=== PATIENT | female | born 1990 | race Caucasian/White ===

== ENCOUNTER 2020-04-17 03:40 | Emergency (ER) | payer MEDICAID ==
[~2020-04-17] VITALS: Ht 160 cm; Wt 57.7 kg
[2020-04-17 04:05] LABS: URINE HCG NEGATIVE (NEG)
[2020-04-17 04:20] LABS: CLARITY,URINE CLOUDY (Clear); COLOR,URINE ORANGE (Yellow); GLUCOSE, URINE NEGATIVE (Neg); KETONES,URINE NEGATIVE (Neg); LEUKOCYTE ESTERASE ,URINE SMALL (Neg); NITRITES, URINE NEGATIVE (Neg); OCCULT BLOOD,URINE LARGE (Neg); PH,URINE 6.5 (4.8-8.0); PROTEIN,URINE TRACE mg/dl (Neg); UROBILINOGEN,URINE 0.2 E.U/dL (0.2-1.0)
[2020-04-17] MEDS ORDERED: morphine 4 MG/ML inj SYRINge IV ONE (04:20)
[2020-04-17] MEDS ORDERED: ondansetron/PF 4mg/2ml inj IV ONE (04:20)
[2020-04-17] MEDS ORDERED: normal saline 1000ml 1,000 ML IV ONE (04:20)
[2020-04-17 04:21] LABS: UA COLLECTION TYPE CLN CATCH MIDSTREAM
[2020-04-17 04:23] LABS: BACTERIA,URINE 1+ /HPF (Neg); RBC,URINE 50-100 /HPF (0-2); SQUAMOUS EPITHELIAL CELL,UR FEW /LPF (FEW); WBC,URINE 0-4 /HPF (0-4)
[2020-04-17] MEDS ORDERED: normal saline 1000ML IV soln IVB ONE (04:25)
[2020-04-17 04:39] LABS: BASOPHILS # (AUTO) 0.1 X10'3 (0-0.2); BASOPHILS % (AUTO) 0.5 % (0-1); EOSINOPHILS # (AUTO) 0.1 X10'3 (0-0.9); EOSINOPHILS % (AUTO) 0.5 % (0-6); HEMOGLOBIN 12.7 g/dl (12.0-16.0); LYMPHOCYTES # (AUTO) 3.1 X10'3 (1.1-4.8); LYMPHOCYTES % (AUTO) 24.4 % (21-51); MEAN CORPUSCULAR HEMOGLOBIN 29.3 PG (27.0-31.0); MEAN CORPUSCULAR HGB CONC 33.4 g/dL (33.0-36.5); MEAN CORPUSCULAR VOLUME 87.9 FL (78-98); MEAN PLATELET VOLUME 7.5 FL (7.4-10.4); MONOCYTES # (AUTO) 0.7 X10'3 (0-0.9); MONOCYTES % (AUTO) 5.4 % (2-12); NEUTROPHILS # (AUTO) 8.7 X10'3 (1.8-7.7); NEUTROPHILS % (AUTO) 69.2 % (42-75); PLATELET COUNT 354 X10'3 (140-440); RED BLOOD COUNT 4.32 X10'6 (4.20-5.60); RED CELL DISTRIBUTION WIDTH 14.6 % (11.5-14.5); WHITE BLOOD COUNT 12.6 X10'3 (4.5-11.0)
[2020-04-17 04:46] LABS: ALANINE AMINOTRANSFERASE 20 U/L (12-78); ALBUMIN 3.6 G/DL (3.4-5.0); ALKALINE PHOSPHATASE 91 IU/L (46-116); ANION GAP 6 (8-16); ASPARTATE AMINO TRANSFERASE 11 U/L (10-37); BILIRUBIN,TOTAL 0.4 MG/DL (0.1-1.0); BLOOD UREA NITROGEN 27 MG/DL (7-18); BUN/CREATININE RATIO 23.5 (6.6-38.0); CALCIUM 9.6 MG/DL (8.5-10.1); CHLORIDE 110 MMOL/L (99-107); CREATININE 1.15 MG/DL (0.40-0.90); GLUCOSE 99 MG/DL (70-104); POTASSIUM 3.9 MMOL/L (3.5-5.1); SODIUM 144 MMOL/L (135-145); TOTAL CARBON DIOXIDE 28.3 MMOL/L (24-32); TOTAL PROTEIN 7.3 G/DL (6.4-8.2); eGFR 56 ML/MIN
[2020-04-17] MEDS ORDERED: ondansetron/PF 4mg/2ml inj IM ONE (05:05)
[2020-04-17] MEDS: morphine 2 MG/ML inj. syringe IV PRN ×3 (05:07→06:15)
[2020-04-17] MEDS ORDERED: POTA10TA21 PO (05:25)
[2020-04-17] MEDS ORDERED: morphine 2 MG/ML inj. syringe IV ONE (05:50)
[2020-04-17] MEDS ORDERED: tamsulosin 0.4mg capsule PO ONE (06:05)
[2020-04-17] MEDS ORDERED: tamsulosin 0.4mg capsule PO SCH (06:05)
[2020-04-17] MEDS ORDERED: FLO0.4C PO (06:06)
[2020-04-17] MEDS ORDERED: ONDA4TAB6 PO (06:06)
[2020-04-17] MEDS ORDERED: HYDR-4383 PO (06:06)
[2020-04-17] MEDS ORDERED: IBUP-1984 PO (06:06)
[2020-04-17 07:09] VITALS: BP 122/72
== END 2020-04-17 07:11 | disposition home or self-care (01) ==
LOC: ER 03:41
DX: N23 Unspecified renal colic (principal); R11.2 Nausea with vomiting, unspecified; R31.9 Hematuria, unspecified; F17.200 Nicotine dependence, unspecified, uncomplicated; Z87.440 Personal history of urinary (tract) infections; Z87.442 Personal history of urinary calculi; Z90.49 Acquired absence of other specified parts of digestive tract; Z98.51 Tubal ligation status; Z88.6 Allergy status to analgesic agent; Z88.8 Allergy status to other drugs, medicaments and biological substances; Z79.899 Other long term (current) drug therapy
CPT/HCPCS: 36415; 74018; 74176; 80053; 81001; 81025; 85025; 87088; 96361; 96374; 96375; 96376; 99285; J2270; J2405; J7030

== ENCOUNTER 2020-04-20 00:53 | Emergency (ER) | payer MEDICAID ==
[~2020-04-20] VITALS: Ht 160 cm; Wt 60.0 kg
[~2020-04-20 00:53] MED LIST: FLO0.4C PO; HYDR-4383 PO; IBUP-1984 PO; ONDA4TAB6 PO; POTA10TA21 PO
[2020-04-20] MEDS ORDERED: ondansetron/PF 4mg/2ml inj IV ONE (01:35)
[2020-04-20] MEDS ORDERED: normal saline 1000ml 1,000 ML IV ONE (01:35)
[2020-04-20] MEDS ORDERED: metoclopramide 5 mg/ml inj IV ONE (01:35)
[2020-04-20] MEDS ORDERED: morphine 4 MG/ML inj SYRINge IV ONE (01:35)
[2020-04-20] MEDS ORDERED: diphenhydrAMINE 50 mg/ml inj IV ONE (02:25)
[2020-04-20 02:35] LABS: ALANINE AMINOTRANSFERASE 17 U/L (12-78); ALBUMIN 3.4 G/DL (3.4-5.0); ALKALINE PHOSPHATASE 89 IU/L (46-116); ANION GAP 9 (8-16); ASPARTATE AMINO TRANSFERASE 15 U/L (10-37); BILIRUBIN,TOTAL 0.2 MG/DL (0.1-1.0); BLOOD UREA NITROGEN 18 MG/DL (7-18); BUN/CREATININE RATIO 15.7 (6.6-38.0); CALCIUM 8.9 MG/DL (8.5-10.1); CHLORIDE 112 MMOL/L (99-107); CREATININE 1.15 MG/DL (0.40-0.90); GLUCOSE 94 MG/DL (70-104); LIPASE 269 U/L (73-393); POTASSIUM 4.1 MMOL/L (3.5-5.1); SODIUM 149 MMOL/L (135-145); TOTAL CARBON DIOXIDE 28.1 MMOL/L (24-32); TOTAL PROTEIN 6.9 G/DL (6.4-8.2); eGFR 56 ML/MIN
[2020-04-20 02:49] LABS: BASOPHILS % (AUTO) 0.3 % (0-1); EOSINOPHILS # (AUTO) 0.1 X10'3 (0-0.9); HEMATOCRIT 36.7 % (35.0-45.0); HEMOGLOBIN 12.1 g/dl (12.0-16.0); LYMPHOCYTES # (AUTO) 2.3 X10'3 (1.1-4.8); LYMPHOCYTES % (AUTO) 20.5 % (21-51); MEAN CORPUSCULAR HEMOGLOBIN 29.3 PG (27.0-31.0); MEAN CORPUSCULAR HGB CONC 32.9 g/dL (33.0-36.5); MEAN PLATELET VOLUME 7.5 FL (7.4-10.4); MONOCYTES # (AUTO) 0.7 X10'3 (0-0.9); MONOCYTES % (AUTO) 6.3 % (2-12); NEUTROPHILS # (AUTO) 8.1 X10'3 (1.8-7.7); NEUTROPHILS % (AUTO) 71.9 % (42-75); PLATELET COUNT 307 X10'3 (140-440); RED BLOOD COUNT 4.12 X10'6 (4.20-5.60); RED CELL DISTRIBUTION WIDTH 15.2 % (11.5-14.5); WHITE BLOOD COUNT 11.2 X10'3 (4.5-11.0)
[2020-04-20] MEDS ORDERED: proCHLORperazine 10 MG/2 ml inj IV ONE (03:00)
[2020-04-20] MEDS ORDERED: acetaminophen 325mg tablet PO ONE (03:00)
[2020-04-20 03:27] LABS: URINE HCG NEGATIVE (NEG)
[2020-04-20 03:31] LABS: CLARITY,URINE CLOUDY (Clear); COLOR,URINE YELLOW (Yellow); GLUCOSE, URINE NEGATIVE (Neg); KETONES,URINE NEGATIVE (Neg); LEUKOCYTE ESTERASE ,URINE TRACE (Neg); NITRITES, URINE NEGATIVE (Neg); OCCULT BLOOD,URINE LARGE (Neg); PROTEIN,URINE TRACE mg/dl (Neg); UROBILINOGEN,URINE 0.2 E.U/dL (0.2-1.0)
[2020-04-20 03:37] LABS: UA COLLECTION TYPE CLN CATCH MIDSTREAM
[2020-04-20 03:38] LABS: BACTERIA,URINE FEW /HPF (Neg); RBC,URINE 50-100 /HPF (0-2); SQUAMOUS EPITHELIAL CELL,UR FEW /LPF (FEW)
[2020-04-20] MEDS ORDERED: HYDROcodone/acetaminophen 5mg/325mg tablet PO ONE (03:50)
[2020-04-20] MEDS ORDERED: ONDA8TAB6 PO (03:50)
[2020-04-20] MEDS ORDERED: HYDR-3965 PO (03:50)
[2020-04-20 04:15] VITALS: BP 121/79
== END 2020-04-20 04:17 | disposition home or self-care (01) ==
LOC: ER 00:53
DX: R10.9 Unspecified abdominal pain (principal); R11.2 Nausea with vomiting, unspecified; R31.9 Hematuria, unspecified; Z90.49 Acquired absence of other specified parts of digestive tract; Z98.51 Tubal ligation status; Z88.8 Allergy status to other drugs, medicaments and biological substances; Z79.899 Other long term (current) drug therapy
CPT/HCPCS: 36415; 80053; 81001; 81025; 83690; 85025; 87088; 96361; 96374; 96375; 99284; J0780; J1200; J2270; J2405; J2765; J7030

== ENCOUNTER 2020-04-28 00:43 | Emergency (ER) | payer MEDICAID ==
[~2020-04-28] VITALS: Ht 160 cm; Wt 60.0 kg
[~2020-04-28 00:43] MED LIST changes: +HYDR-3965 PO; +ONDA8TAB6 PO
[2020-04-28] MEDS ORDERED: ondansetron/PF 4mg/2ml inj IV ONE ×2 (01:05→02:05)
[2020-04-28] MEDS ORDERED: normal saline 1000ML IV soln IVB ONE (01:05)
[2020-04-28 01:09] LABS: CLARITY,URINE CLOUDY (Clear); COLOR,URINE AMBER (Yellow); GLUCOSE, URINE NEGATIVE (Neg); KETONES,URINE NEGATIVE (Neg); LEUKOCYTE ESTERASE ,URINE NEGATIVE (Neg); NITRITES, URINE NEGATIVE (Neg); OCCULT BLOOD,URINE LARGE (Neg); PH,URINE 5.5 (4.8-8.0); PROTEIN,URINE TRACE mg/dl (Neg); UROBILINOGEN,URINE 0.2 E.U/dL (0.2-1.0)
[2020-04-28 01:10] LABS: UA COLLECTION TYPE CLN CATCH MIDSTREAM
[2020-04-28 01:11] LABS: URINE HCG NEGATIVE (NEG)
[2020-04-28 01:13] LABS: BACTERIA,URINE NONE SEEN /HPF (Neg); SQUAMOUS EPITHELIAL CELL,UR FEW /LPF (FEW); WBC,URINE 0-4 /HPF (0-4)
[2020-04-28 01:14] LABS: RBC,URINE 20-50 /HPF (0-2)
[2020-04-28] MEDS: morphine 4 MG/ML inj SYRINge IV PRN ×2 (01:35→02:06)
[2020-04-28 01:55] LABS: BASOPHILS # (AUTO) 0.1 X10'3 (0-0.2); BASOPHILS % (AUTO) 0.6 % (0-1); EOSINOPHILS # (AUTO) 0.2 X10'3 (0-0.9); EOSINOPHILS % (AUTO) 1.5 % (0-6); HEMATOCRIT 38.8 % (35.0-45.0); LYMPHOCYTES # (AUTO) 3.1 X10'3 (1.1-4.8); LYMPHOCYTES % (AUTO) 24.7 % (21-51); MEAN CORPUSCULAR HEMOGLOBIN 30.1 PG (27.0-31.0); MEAN CORPUSCULAR HGB CONC 33.5 g/dL (33.0-36.5); MEAN CORPUSCULAR VOLUME 89.9 FL (78-98); MEAN PLATELET VOLUME 7.6 FL (7.4-10.4); MONOCYTES # (AUTO) 0.6 X10'3 (0-0.9); MONOCYTES % (AUTO) 4.8 % (2-12); NEUTROPHILS # (AUTO) 8.5 X10'3 (1.8-7.7); NEUTROPHILS % (AUTO) 68.4 % (42-75); PLATELET COUNT 285 X10'3 (140-440); RED BLOOD COUNT 4.31 X10'6 (4.20-5.60); RED CELL DISTRIBUTION WIDTH 15.2 % (11.5-14.5); WHITE BLOOD COUNT 12.5 X10'3 (4.5-11.0)
[2020-04-28 01:59] LABS: ALANINE AMINOTRANSFERASE 26 U/L (12-78); ALBUMIN 3.7 G/DL (3.4-5.0); ALKALINE PHOSPHATASE 99 IU/L (46-116); ANION GAP 8 (8-16); ASPARTATE AMINO TRANSFERASE 9 U/L (10-37); BILIRUBIN,TOTAL 0.4 MG/DL (0.1-1.0); BLOOD UREA NITROGEN 21 MG/DL (7-18); BUN/CREATININE RATIO 18.8 (6.6-38.0); CALCIUM 9.6 MG/DL (8.5-10.1); CHLORIDE 107 MMOL/L (99-107); CREATININE 1.12 MG/DL (0.40-0.90); GLUCOSE 103 MG/DL (70-104); LIPASE 297 U/L (73-393); POTASSIUM 3.6 MMOL/L (3.5-5.1); SODIUM 143 MMOL/L (135-145); TOTAL CARBON DIOXIDE 27.6 MMOL/L (24-32); TOTAL PROTEIN 7.4 G/DL (6.4-8.2); eGFR 58 ML/MIN
[2020-04-28] MEDS ORDERED: tamsulosin 0.4mg capsule PO ONE (02:30)
[2020-04-28] MEDS ORDERED: HYDR-3965 PO (02:32)
[2020-04-28] MEDS ORDERED: FLO0.4C PO (02:32)
[2020-04-28 02:39] VITALS: BP 129/88
== END 2020-04-28 02:43 | disposition home or self-care (01) ==
LOC: ER 00:44
DX: N20.0 Calculus of kidney (principal); F12.90 Cannabis use, unspecified, uncomplicated; F17.200 Nicotine dependence, unspecified, uncomplicated; Z90.49 Acquired absence of other specified parts of digestive tract; Z98.51 Tubal ligation status; Z72.89 Other problems related to lifestyle; Z88.8 Allergy status to other drugs, medicaments and biological substances; Z88.6 Allergy status to analgesic agent; Z88.5 Allergy status to narcotic agent; Z79.899 Other long term (current) drug therapy
CPT/HCPCS: 36415; 80053; 81001; 81025; 83690; 85025; 96374; 96375; 96376; 99284; J2270; J2405; J7030

== ENCOUNTER 2020-05-01 10:43 | Emergency (ER) | payer MEDICAID ==
[~2020-05-01] VITALS: Ht 160 cm; Wt 68.0 kg
[2020-05-01 11:20] LABS: CLARITY,URINE CLOUDY (Clear); COLOR,URINE RED (Yellow); GLUCOSE, URINE NEGATIVE (Neg); KETONES,URINE NEGATIVE (Neg); LEUKOCYTE ESTERASE ,URINE NEGATIVE (Neg); NITRITES, URINE NEGATIVE (Neg); OCCULT BLOOD,URINE LARGE (Neg); PH,URINE 7.5 (4.8-8.0); PROTEIN,URINE TRACE mg/dl (Neg); UROBILINOGEN,URINE 0.2 E.U/dL (0.2-1.0)
[2020-05-01 11:21] LABS: UA COLLECTION TYPE CLN CATCH MIDSTREAM; URINE HCG NEGATIVE (NEG)
[2020-05-01 11:27] LABS: BACTERIA,URINE FEW /HPF (Neg); MUCUS STRANDS NONE SEEN /LPF (Neg); RBC,URINE TNTC /HPF (0-2); SQUAMOUS EPITHELIAL CELL,UR FEW /LPF (FEW); WBC,URINE 0-4 /HPF (0-4)
[2020-05-01] MEDS ORDERED: morphine 4 MG/ML inj SYRINge IV ONE ×2 (12:10→13:05)
[2020-05-01] MEDS ORDERED: ondansetron/PF 4mg/2ml inj IV ONE (12:10)
[2020-05-01] MEDS ORDERED: normal saline 1000ml 1,000 ML IV ONE (12:10)
--- NOTE | 2020-05-01 12:44 | NUR ---
LAB CALL BLOOD HEMOLYZED, MUST REDRAW
[2020-05-01] MEDS ORDERED: diphenhydrAMINE 50 mg/ml inj IV ONE (14:15)
[2020-05-01] MEDS ORDERED: proCHLORperazine 10 MG/2 ml inj IV ONE (14:15)
[2020-05-01 14:16] LABS: BASOPHILS # (AUTO) 0.1 X10'3 (0-0.2); BASOPHILS % (AUTO) 0.8 % (0-1); EOSINOPHILS % (AUTO) 0.5 % (0-6); HEMATOCRIT 39.7 % (35.0-45.0); HEMOGLOBIN 13.4 g/dl (12.0-16.0); LYMPHOCYTES # (AUTO) 2.4 X10'3 (1.1-4.8); MEAN CORPUSCULAR HEMOGLOBIN 30.3 PG (27.0-31.0); MEAN CORPUSCULAR HGB CONC 33.7 g/dL (33.0-36.5); MEAN CORPUSCULAR VOLUME 89.9 FL (78-98); MEAN PLATELET VOLUME 7.4 FL (7.4-10.4); MONOCYTES # (AUTO) 0.4 X10'3 (0-0.9); MONOCYTES % (AUTO) 4.1 % (2-12); NEUTROPHILS # (AUTO) 7.6 X10'3 (1.8-7.7); NEUTROPHILS % (AUTO) 71.6 % (42-75); PLATELET COUNT 306 X10'3 (140-440); RED BLOOD COUNT 4.42 X10'6 (4.20-5.60); RED CELL DISTRIBUTION WIDTH 15.3 % (11.5-14.5); WHITE BLOOD COUNT 10.6 X10'3 (4.5-11.0)
[2020-05-01 14:34] LABS: ALANINE AMINOTRANSFERASE 21 U/L (12-78); ALBUMIN 3.7 G/DL (3.4-5.0); ALBUMIN/GLOBULIN RATIO 0.9 (1.1-1.5); ALKALINE PHOSPHATASE 83 IU/L (46-116); ANION GAP 9 (8-16); ASPARTATE AMINO TRANSFERASE 13 U/L (10-37); BILIRUBIN,TOTAL 0.6 MG/DL (0.1-1.0); BLOOD UREA NITROGEN 16 MG/DL (7-18); CALCIUM 8.6 MG/DL (8.5-10.1); CHLORIDE 107 MMOL/L (99-107); GLUCOSE 71 MG/DL (70-104); LIPASE 333 U/L (73-393); POTASSIUM 4.4 MMOL/L (3.5-5.1); SODIUM 143 MMOL/L (135-145); TOTAL CARBON DIOXIDE 27.4 MMOL/L (24-32); TOTAL PROTEIN 7.7 G/DL (6.4-8.2); eGFR 85 ML/MIN
[2020-05-01] MEDS ORDERED: ONDA4TAB6 PO (14:51)
[2020-05-01] MEDS ORDERED: HYDR-4383 PO (14:51)
[2020-05-01 15:02] VITALS: BP 119/80
== END 2020-05-01 15:06 | disposition home or self-care (01) ==
LOC: ER 10:44
DX: N20.0 Calculus of kidney (principal); F12.90 Cannabis use, unspecified, uncomplicated; R11.2 Nausea with vomiting, unspecified; Z72.89 Other problems related to lifestyle; Z90.49 Acquired absence of other specified parts of digestive tract; Z98.51 Tubal ligation status; Z88.8 Allergy status to other drugs, medicaments and biological substances; Z79.899 Other long term (current) drug therapy
CPT/HCPCS: 36415; 76775; 80053; 81001; 81025; 83690; 85025; 96361; 96374; 96375; 96376; 99285; J0780; J1200; J2270; J2405; J7030

== ENCOUNTER 2020-05-04 00:31 | Emergency (ER) | payer MEDICAID ==
[~2020-05-04] VITALS: Ht 160 cm; Wt 60.0 kg
[2020-05-04 00:38] VITALS: BP 105/78
[2020-05-04] MEDS ORDERED: diphenhydrAMINE 50 mg/ml inj IM ONE (00:45)
[2020-05-04] MEDS ORDERED: ketorolac trometh inj. 60 MG/2 ML VIAL IM ONE (00:45)
[2020-05-04] MEDS ORDERED: proCHLORperazine 10 MG/2 ml inj IM ONE (00:45)
--- NOTE | 2020-05-04 01:06 | NUR ---
dr. Romero stated that a urina sample was unesscessary considering we have her recent urine sample and results.
== END 2020-05-04 01:06 | disposition home or self-care (01) ==
LOC: ER 00:32
DX: N20.0 Calculus of kidney (principal); F12.90 Cannabis use, unspecified, uncomplicated; R11.2 Nausea with vomiting, unspecified; R10.9 Unspecified abdominal pain; Z90.49 Acquired absence of other specified parts of digestive tract; Z98.51 Tubal ligation status; Z72.89 Other problems related to lifestyle; Z88.8 Allergy status to other drugs, medicaments and biological substances; Z79.899 Other long term (current) drug therapy
CPT/HCPCS: 96372; 99284; J0780; J1200; J1885

== ENCOUNTER 2020-05-19 19:52 | Emergency (ER) | payer MEDICAID ==
[~2020-05-19] VITALS: Ht 167.6 cm; Wt 75.0 kg
[~2020-05-19 19:52] MED LIST changes: -FLO0.4C PO; -IBUP-1984 PO
[2020-05-19] MEDS ORDERED: dexamethasone sod phosphate 10mg/ml inj IM STA (20:09)
[2020-05-19 20:44] LABS: BASOPHILS # (AUTO) 0.1 X10'3 (0-0.2); BASOPHILS % (AUTO) 0.6 % (0-1); EOSINOPHILS # (AUTO) 0.1 X10'3 (0-0.9); EOSINOPHILS % (AUTO) 1.3 % (0-6); HEMATOCRIT 40.5 % (35.0-45.0); HEMOGLOBIN 13.4 g/dl (12.0-16.0); LYMPHOCYTES # (AUTO) 2.8 X10'3 (1.1-4.8); LYMPHOCYTES % (AUTO) 27.8 % (21-51); MEAN CORPUSCULAR HEMOGLOBIN 30.4 PG (27.0-31.0); MEAN CORPUSCULAR HGB CONC 33.1 g/dL (33.0-36.5); MEAN CORPUSCULAR VOLUME 91.8 FL (78-98); MEAN PLATELET VOLUME 7.7 FL (7.4-10.4); MONOCYTES # (AUTO) 0.5 X10'3 (0-0.9); MONOCYTES % (AUTO) 5.2 % (2-12); NEUTROPHILS # (AUTO) 6.6 X10'3 (1.8-7.7); NEUTROPHILS % (AUTO) 65.1 % (42-75); PLATELET COUNT 293 X10'3 (140-440); RED BLOOD COUNT 4.41 X10'6 (4.20-5.60); RED CELL DISTRIBUTION WIDTH 15.8 % (11.5-14.5); WHITE BLOOD COUNT 10.1 X10'3 (4.5-11.0)
[2020-05-19] MEDS ORDERED: normal saline 1000ml 1,000 ML IV ONE (20:45)
[2020-05-19] MEDS ORDERED: PRED20TA PO (20:53)
[2020-05-19] MEDS ORDERED: ALBU6.7H9 INH (20:53)
[2020-05-19] MEDS ORDERED: AZIT250T2 PO (20:53)
[2020-05-19] MEDS ORDERED: LORazepam 1 MG tablet PO ONE (20:55)
[2020-05-19 21:00] VITALS: BP 116/77
== END 2020-05-19 21:48 | disposition home or self-care (01) ==
LOC: ER 19:53
DX: J40 Bronchitis, not specified as acute or chronic (principal); Z20.828 Contact with and (suspected) exposure to other viral communicable diseases; J45.909 Unspecified asthma, uncomplicated; Z98.51 Tubal ligation status; Z90.49 Acquired absence of other specified parts of digestive tract; F12.90 Cannabis use, unspecified, uncomplicated; Z72.89 Other problems related to lifestyle; Z88.8 Allergy status to other drugs, medicaments and biological substances; Z79.2 Long term (current) use of antibiotics; Z79.899 Other long term (current) drug therapy
CPT/HCPCS: 36415; 71045; 85025; 93005; 96372; 99285; J1100; J7030; U0003